=== PATIENT | female | born 1975 | race Caucasian/White ===

== ENCOUNTER 2021-12-21 09:36 | Outpatient (CLI) | payer BC, SELFPAY ==
--- NOTE | 2021-12-21 09:59 | EST_ITS ---
Patient Info Name: Jessica Dean Age: 46 years : 1975 Gender: Female Ht: 64 in Wt: 240 lbs BSA: 2.27 m2 Exam Date: 12/21/2021 10:35 AM Exam Location: [facility] Patient Status: Outpatient Admit Date: 12/21/2021 Staff Ordering Physician: Diogenes Hand DO Attending Provider: Diogenes Hand DO Exercise Technologist: Starla Villalobos RDCS Exercise Physician: Diogenes Hand DO Exam Type: CA stress test treadmill Study Info Indications R07.9 - Chest pain, unspecified An exercise stress test was performed. Summary 1. 1. Negative [facility]ris exercise stress test for ischemic ST changes by ECG criteria. 2. 2. Reduced functional capacity, achieving 7 METs of workload. 3. 3. Baseline hypertension. 4. 4. Appropriate HR response to exercise. 5. 5. Appropriate HR recovery at 1 minute post exercise. 6. 6. Baseline ventricular ectopics. 7. 7. No imaging with stress testing. 8. 8. Patient informed of the above results. Protocol: [facility] ECG Details Stage: REST Duration (min): 0 min : 57 sec Speed (mph): 0.0 Grade (%): 0 HR (bpm): 91 SBP (mmHg): 149 DBP (mmHg): 90 METS: --- Stage: REST Duration (min): 7 min : 7 sec Speed (mph): 0.0 Grade (%): 0 HR (bpm): 90 SBP (mmHg): 149 DBP (mmHg): 90 METS: --- Stage: STAGE 1 Duration (min): 1 min : 0 sec Speed (mph): 1.7 Grade (%): 10 HR (bpm): 121 SBP (mmHg): 149 DBP (mmHg): 90 METS: --- Stage: STAGE 1 Duration (min): 2 min : 0 sec Speed (mph): 1.7 Grade (%): 10 HR (bpm): 135 SBP (mmHg): 149 DBP (mmHg): 90 METS: --- Stage: STAGE 1 Duration (min): 3 min : 0 sec Speed (mph): 1.7 Grade (%): 10 HR (bpm): 146 SBP (mmHg): 194 DBP (mmHg): 79 METS: --- Stage: STAGE 2 Duration (min): 1 min : 0 sec Speed (mph): 2.5 Grade (%): 12 HR (bpm): 151 SBP (mmHg): 194 DBP (mmHg): 79 METS: --- Stage: STAGE 2 Duration (min): 1 min : 23 sec Speed (mph): 2.5 Grade (%): 12 HR (bpm): 151 SBP (mmHg): 194 DBP (mmHg): 79 METS: --- Stage: RECOVERY Duration (min): 0 min : 36 sec Speed (mph): 0.0 Grade (%): 0 HR (bpm): 141 SBP (mmHg): 206 DBP (mmHg): 78 METS: --- Stage: RECOVERY Duration (min): 1 min : 36 sec Speed (mph): 0.0 Grade (%): 0 HR (bpm): 114 SBP (mmHg): 206 DBP (mmHg): 78 METS: --- Stage: RECOVERY Duration (min): 2 min : 36 sec Speed (mph): 0.0 Grade (%): 0 HR (bpm): 106 SBP (mmHg): 206 DBP (mmHg): 78 METS: --- Stage: RECOVERY Duration (min): 3 min : 36 sec Speed (mph): 0.0 Grade (%): 0 HR (bpm): 105 SBP (mmHg): 187 DBP (mmHg): 74 METS: --- Stage: RECOVERY Duration (min): 4 min : 36 sec Speed (mph): 0.0 Grade (%): 0 HR (bpm): 101 SBP (mmHg): 187 DBP (mmHg): 74 METS: --- Stage:
== END 2021-12-21 09:37 | disposition home or self-care (01) ==
PROVIDERS: PCP Family Medicine; Visit Provider Internal Medicine Cardiovascular Disease
DX: R07.9 Chest pain, unspecified (principal)
CPT/HCPCS: 93017

== ENCOUNTER 2022-11-20 08:34 | Outpatient (CLI) | payer BC, SELFPAY ==
[2022-11-20 08:59] LABS: Basophils Percent Auto 0.5 % (0.2-1.2); Eosinophils Absolute Auto 0.1 K/mm3 (0-0.3); Hematocrit 41.7 % (37.0-47.0); Hemoglobin 14.3 g/dL (12.0-15.0); Immature Granulocyte Absolute 0.12 K/mm3 (0.00-0.031); Immature Granulocyte Percent A 1.5 % (0-0.5); Lymphocytes Absolute Auto 1.44 K/mm3 (0.9-3.2); Lymphocytes Percent Auto 17.7 % (18.3-44.2); Mean Corpuscular HGB Conc 34.3 g/dl (32-36); Mean Corpuscular Hemoglobin 31.8 pg (26-34); Mean Corpuscular Volume 92.9 fl (80-100); Mean Platelet Volume 9.6 fl (7.4-10.4); Monocytes Absolute Auto 0.9 K/mm3 (0.1-0.6); Monocytes Percent Auto 11.4 % (2.6-8.5); Neutrophils Absolute Auto 5.5 K/mm3 (1.3-6.7); Neutrophils Percent Auto 67.9 % (45.5-73.1); Platelet Count Result 325 k/mm3 (150-375); Red Blood Count 4.49 M/mm3 (4.2-5.4); Red Cell Distribution Width 13.1 % (11.5-14.5); White Blood Count 8.1 K/mm3 (4.5-10.0)
[2022-11-20 10:36] LABS: Alanine Aminotransferase 36 U/L (6-35); Albumin Level 4.1 g/dL (3.5-5.1); Alkaline Phosphatase 84 U/L (38-126); Anion Gap 4 mmol/L (8-16); Aspartate Amino Transferase 31 U/L (14-36); Bilirubin,Total 0.6 mg/dL (0.2-1.3); Blood Urea Nitrogen 12 mg/dL (7-17); Calcium 8.3 mg/dL (8.4-10.2); Carbon Dioxide 33 mmol/L (22-30); Chloride 100 mmol/L (98-107); Cholesterol 233 mg/dL (0-200); Estimated Glomerular Filt Rate > 60; Glucose 99 mg/dL (65-110); HDL Direct 70 mg/dL; Potassium 3.1 mmol/L (3.4-5.0); Sodium 137 mmol/L (137-145); Triglycerides 132 mg/dL (<150)
[2022-11-20 10:48] LABS: LDL Cholesterol Direct 118 mg/dL
[2022-11-20 10:59] LABS: Hemoglobin A1C 5.2 % (<5.7)
[2022-11-20 11:42] LABS: Folic Acid 11.9 ng/mL (2.76->20); Vitamin B12 > 1000.0 pg/mL (239-931)
[2022-11-24 05:20] LABS: FSH 8.8 mIU/mL (***); LH 1.4 mIU/mL (***)
[2022-11-25 15:17] LABS: Vitamin D 1,25 (OH)2 Total 49 pg/mL (18-72); Vitamin D2 1,25 (OH)2 <8 pg/mL; Vitamin D3 1,25 (OH)2 49 pg/mL
== END 2022-11-20 08:35 | disposition home or self-care (01) ==
LOC: ANHLAB 08:36
PROVIDERS: PCP Family Medicine; Visit Provider Physician Assistant
DX: E53.8 Deficiency of other specified B group vitamins (principal); F32.9 Major depressive disorder, single episode, unspecified; E66.01 Morbid (severe) obesity due to excess calories; E78.5 Hyperlipidemia, unspecified; Z83.3 Family history of diabetes mellitus; Z79.899 Other long term (current) drug therapy
CPT/HCPCS: 36415; 80053; 80061; 82607; 82652; 82746; 83001; 83002; 83036; 84443; 85025

== ENCOUNTER 2022-12-11 11:56 | Outpatient (CLI) | payer BC, SELFPAY ==
[2022-12-11 12:25] LABS: Anion Gap 4 mmol/L (8-16); Blood Urea Nitrogen 8 mg/dL (7-17); Carbon Dioxide 32 mmol/L (22-30); Chloride 100 mmol/L (98-107); Potassium 3.4 mmol/L (3.4-5.0); Sodium 136 mmol/L (137-145)
[2022-12-11 12:26] LABS: Calcium 8.2 mg/dL (8.4-10.2); Estimated Glomerular Filt Rate > 60; Glucose 122 mg/dL (65-110)
== END 2022-12-11 11:57 | disposition home or self-care (01) ==
PROVIDERS: PCP Family Medicine; Visit Provider Physician Assistant
DX: E87.6 Hypokalemia (principal)
CPT/HCPCS: 36415; 80048

== ENCOUNTER 2022-12-13 14:56 | Outpatient (CLI) | payer BC, SELFPAY ==
--- NOTE | 2022-12-13 15:33 | ECG_ITS ---
Measurements Intervals Coleman Rate: 93 P: 28 LA: 148 QRS: 12 QRSD: 107 T: 29 QT: 349 QTc: 436 Interpretive Statements SINUS RHYTHM VOLTAGE CRITERIA FOR LVH NONSPECIFIC ST & T-WAVE ABNORMALITY- ANT/INF LEADS BORDERLINE ECG NO PREVIOUS ECG AVAILABLE FOR COMPARISON Electronically Signed On 12-13-2022 16:17:13 CDT by Diogenes Hand D.O.
== END 2022-12-13 14:57 | disposition home or self-care (01) ==
PROVIDERS: PCP Family Medicine; Visit Provider Orthopaedic Surgery
DX: E78.5 Hyperlipidemia, unspecified (principal); I10 Essential (primary) hypertension; M75.101 Unspecified rotator cuff tear or rupture of right shoulder, not specified as traumatic; Z01.818 Encounter for other preprocedural examination; R94.31 Abnormal electrocardiogram [ECG] [EKG]
CPT/HCPCS: 87081; 93005

== ENCOUNTER 2022-12-17 00:58 | Day surgery (SDC) | payer BC, SELFPAY ==
[2022-12-13 09:49] VITALS: BMI 42.9
--- NOTE | 2022-12-13 09:55 | PC.NURSE ---
Report to the Outpatient Waiting Room, entrance under the green pavilion located off [facility], at time 10:00 on date 12/17/22. Planned Procedure Time: 12:00. Time changes happen often and if your time is changed the preop area will call you the afternoon before. - You and your visitor will be asked to self-screen and do not enter if you have any COVID symptoms. - A mask is optional within the hospital at this time. Patients may have clear liquids (water, carbonated beverages, clear teas, apple juice) until 3 hours prior to surgery (9:00) with a maximum of 20 ounces. - No food from midnight until time of surgery Take the following medications with a SIP of water the morning of surgery: AMLODIPINE, BUPROPION, FLUOXETINE DO NOT STOP ANY OF YOUR OTHER PRESCRIPTION MEDICATIONS PRIOR TO SURGERY ?EXCEPT THE FOLLOWING Medications to discontinue per physician: N/A Date to take last dose: N/A Please no make-up, nail macedonian, hairspray, perfume, deodorant, or body powder the day of surgery. No jewelry (including any body piercings) or valuables the day of surgery, leave them at home. Please take a shower or bath the night before, or the morning of, surgery with an antibacterial soap. Wear comfortable, loose fitting clothing. - Jewelry must be removed prior to entering the operating room. Rings and piercings that are not removed may be cut off. - The hospital will not accept responsibility for valuables. - Please leave all valuables, including medications, at home the day of surgery. If you are going home after surgery, a licensed inventory associate and driver must drive you home. - NO public transportation without another adult if you receive anesthesia. - We recommend that an adult stay with you for 24 hours following discharge. - We also recommend that you do not drive, make important decision, drink alcoholic beverages, or take any drugs that were not prescribed by your health care provider for at least 24 hours after your discharge time. Follow any additional instructions given to you from your surgeon. If you or anyone in your household have experienced Covid symptoms in the past week, please notify your surgeon or the nurse liaison at the phone number below for possible testing. Telephone instructions given to PT - BAKARI SANTA and asked if any additional questions and then verbalized understanding. Patient advised to call surgeon office or pre surgery nurse liaison [phone] if any additional questions.
--- NOTE | 2022-12-13 12:21 | PM.IMHP ---
H&P: HPI History of Present Illness Date/Time: 12/13/22 12:21 Chief Complaint: Rotator cuff tear right shoulder Narrative: 47-year-old female patient of Dr. Feliz who presents today for arthroscopy of her right shoulder with mini open rotator cuff repair. Patient has been having symptoms in the right shoulder for about a year. She has had 2 cortisone injections earlier this year. On 11/02 of this year she was moving her 10 lb hurts. When she went to pick it up she felt several pops in the right shoulder any tearing sensation. She had extreme pain in the anterior aspect of the shoulder. She was seen on 11/03. After initial evaluation she was sent for an MRI scan of the shoulder which showed a full-thickness tear the supraspinatus tendon with retraction. There is no atrophy or fatty infiltration noted. Findings on the MRI scan would suggest this is an acute tear. Patient is only 47 and options were discussed. Patient would like to proceed with surgery for repair of the rotator cuff tendon. Review of Systems Review of Systems: All systems reviewed & are unremarkable except as noted in HPI and below PMFSH Past Medical History Medical History delivery delivered Depression Headache, migraine Hyperlipidemia Hypertension Palpitations Family History Family History Father Cerebrovascular accident Hypertension Family history of Parkinson's disease Mother Hypertension Family history of diabetes mellitus in first degree relative Sibling Hypertension Social History Social History Years smoked: 25 Smoking status: Former smoker Tobacco type: cigarettes Smoking end date: 04/04/17 Alcohol intake: never Substance use: never Substance use type: does not use Living arrangements: with family Spiritual care concerns: No Meds Home Medications and Allergies Home Medications Medication Instructions Recorded Confirmed Type amlodipine 10 mg tablet See Rx Instructions .Route 07/19/22 12/13/22 Rx .COMPLEX #90 tabs pravastatin 20 mg tablet See Rx Instructions .Route 07/19/22 12/13/22 Rx .COMPLEX #90 tabs bupropion HCl 300 mg 24 hr tablet, See Rx Instructions .Route 09/27/22 12/13/22 Rx extended release .COMPLEX #90 tabs losartan 100 mg tablet 100 mg PO DAILY #90 tabs 11/23/22 12/13/22 Rx fluoxetine 20 mg capsule 20 mg PO DAILY #90 caps 11/30/22 12/13/22 Rx Allergies Allergy/AdvReac Type Severity Reaction Status Date / Time latex Allergy Intermediate ITCHING Verified 12/13/22 09:48 lisinopril Allergy Unknown cough Verified 12/13/22 09:48 morphine Allergy Unknown Skin Verified 12/13/22 09:48 Reaction naltrexone Allergy Unknown Depression Verified 12/13/22 09:48 Exam Narrative: 47-year-old female she is 5 ft 3 and 258 lb her BMI is 45.7. Her neck is full range motion without discomfort. She has normal light touch sensation right upper extremity. She has severe pain with movement of the arm. She has assisted elevation 160, external rotation is 75 and internal rotation is to L5. She has moderately severe weakness with external rotation as well as abduction strength testing. Negative abdominal compression test. 2+ radial pulse in her wrist. Moderate to severe tenderness over the anterior supraspinatus tendon insertion. Resp: Auscultation: clear to auscultation bilaterally Cardio: Rate: regular rate Rhythm: regular rhythm Assessment and Plan Assessment and plan (1) Rotator cuff tear, right: Qualifiers: Rotator cuff tear extent: unspecified tear extent Rotator cuff tear trauma status: unspecified whether traumatic Qualified Code(s): M75.101 - Unspecified rotator cuff tear or rupture of right shoulder, not specified as traumatic Code(s): M75.101 - Unspecified rotator cuff tear
[2022-12-17] VITALS (11 sets, daily range): BP systolic 138–175; BP diastolic 72–98; PULSE 96–112; RESP 14–19; TEMP 36.8–37.2; O2SAT 93–99
[2022-12-17] MEDS: ACETAMINOPHEN 500 MG TABLET 1000 MG PO (10:45)
[2022-12-17] MEDS: LACTATED RINGERS 1,000 ML 30 ML IV CONT ×2 (10:51→16:27)
[2022-12-17] MEDS: KETOROLAC 15 MG/ML VIAL (*BKC) IV PUSH (10:52)
--- NOTE | 2022-12-17 11:06 | SUR.PREOP ---
PT AND INFORMED OF SURGERY TIME DELAY.
--- NOTE | 2022-12-17 12:02 | WPDANESEPPF ---
Anes - Initial Pre Proc Eval Procedure: Operation Date: 12/17/22 12:00 Proposed Procedures p Right Shoulder Arthroscopy, Mini Open Rotator Cuff Repair, Proceed as Indicated - Hussein Domingo MD Date/Time: 12/17/22 12:02 Surgeon: Hussein Domingo MD Pre Op Diagnosis: rotator cuff tear right shoulder Patient Data Age: 47 Gender: F Height: 1.63 m Weight: 115 kg Last Vital Signs Temp 37.2 C 12/17/22 10:23 Pulse 99 12/17/22 10:23 Resp 16 12/17/22 10:23 BP 160/95 H 12/17/22 10:23 Pulse Ox 98 12/17/22 10:23 O2 Del Method Room Air 12/17/22 10:23 Allergies Allergy/AdvReac Type Severity Reaction Status Date / Time latex Allergy Intermediate ITCHING Verified 12/17/22 10:27 lisinopril Allergy Unknown cough Verified 12/17/22 10:27 morphine Allergy Unknown Skin Verified 12/17/22 10:27 Reaction naltrexone Allergy Unknown Depression Verified 12/17/22 10:27 Home Medications Medication Instructions Recorded Confirmed Type amlodipine 10 mg tablet See Rx Instructions .Route 07/19/22 12/17/22 Rx .COMPLEX #90 tabs pravastatin 20 mg tablet See Rx Instructions .Route 07/19/22 12/17/22 Rx .COMPLEX #90 tabs bupropion HCl 300 mg 24 hr tablet, See Rx Instructions .Route 09/27/22 12/17/22 Rx extended release .COMPLEX #90 tabs losartan 100 mg tablet 100 mg PO DAILY #90 tabs 11/23/22 12/17/22 Rx fluoxetine 20 mg capsule 20 mg PO DAILY #90 caps 11/30/22 12/17/22 Rx Patient hx anesthesia problems: none Family hx anesthesia problems: none Results Review: All pre-operative results and documents have been reviewed as part of the pre-operative evaluation. FOR[facility], [facility] Past Medical History Medical History delivery delivered Depression Headache, migraine Hyperlipidemia Hypertension Palpitations Family History Family History Father Cerebrovascular accident Hypertension Family history of Parkinson's disease Mother Hypertension Family history of diabetes mellitus in first degree relative Sibling Hypertension Social History Social History Years smoked: 25 Smoking status: Former smoker Tobacco type: cigarettes Smoking end date: 04/04/17 Alcohol intake: never Substance use: never Substance use type: does not use Living arrangements: with family Spiritual care concerns: No Anes - Eval Final PreProcedure Day of Procedure 12/17/22 12:02 Patient weight: morbidly obese Lungs: clear to auscultation Airway: Mallampati scale class II Neurological: alert and oriented Last oral intake: >/= 8 hours ASA classification: III Emergent: no Anesthetic plan: proceed Anesthesia type and monitoring: general ETT and standard monitoring Results Review: All pre-operative results and documents have been reviewed as part of the pre-operative evaluation. Informed Consent: The patient's anesthetic plan and its attendant risks and benefits were discussed with the patient/family/POA. Questions were solicited and answers provided to the satisfaction of the patient/family/POA.
--- NOTE | 2022-12-17 12:17 | WPDHPUPDATE1 ---
History and Physical Update Update Date/Time: 12/17/22 12:17 History and Physical has been reviewed, including an updated exam of the patient. There are NO changes in the patient's condition. Risks, benefits, and alternatives have been discussed and questions answered. Patient agrees to proceed with procedure.
--- NOTE | 2022-12-17 12:34 | WPDANESPNB ---
Anes - Peripheral Nerve Block Date/Time: 12/17/22 12:34 I have discussed with the patient/family/POA the placement of a peripheral nerve block for post-operative pain management, including associated risks, benefits, complications, and side effects. Alternative methods of post-operative analgesia were detailed. Questions were solicited and answers provided to the satisfaction of the patient/family/POA. Time-Out: A pre-procedural Time-Out was completed immediately before starting the procedure and confirmed: Patient Identification, Site, Procedure, Patient Position and the Availability of Requisite Equipment. Clinical Indications: Acute post-operative pain management requested by the operative surgeon. Nerve Block Insertion Note Anes-nerve block: interscalene right Patient position: other (sitting) Skin prep: chlorhexidine Needle: 22 gauge, stimulating, insulated echogenic needle. Needle length: 50 mm Technique: nerve stimulation lost at (mA) and ultrasound Technique comment: mid2mg [id number] Injectate: bupivacaine 0.5% with epi 5 mcg/ml (30ml no epi) and dexamethasone (mg) Observations: tolerated well Complications: none Procedure start time:: 1223 Procedure end time:: 1230
[2022-12-17] MEDS: ceFAZolin 2 GM/D5W 50 ML 2 GM/50 ML BAG IVPB (12:38)
[2022-12-17] MEDS: VANCOMYCIN HCL 1,000 MG VIAL 1000 MG TOPICAL (13:46)
[2022-12-17] MEDS: ceFAZolin SODIUM 1 GM VIAL (13:46)
[2022-12-17] MEDS: BUPIVACAINE/EPINEPHRINE 0.5% 50 ML VIAL INFILTRATE (13:49)
[2022-12-17] MEDS: ceFAZolin SODIUM 1 GM VIAL IV PUSH (15:52)
--- NOTE | 2022-12-17 16:34 | PM.OP ---
Procedure Note - Brief Procedure Note - Brief Date of procedure: 12/17/22 rotator cuff tear right shoulder Procedure performed: Arthroscopy right shoulder with mini open rotator cuff repair Surgeon: LELE Campa Description of procedure: 47-year-old female who underwent arthroscopy of her right shoulder with mini open rotator cuff repair. I was involved in the procedure including positioning patient on the OR table and 1st assisting to the time surgery. Total time spent was 4 hours
[2022-12-17] MEDS: ONDANSETRON INJ 4 MG/2 ML VIAL IV PUSH (17:22)
[2022-12-17] MEDS: diphenhydrAMINE HCl INJ 50 MG/ML VIAL 25 MG IV PUSH (17:52)
--- NOTE | 2022-12-18 19:39 | W.PM.PROC2 ---
Procedure Note - Detailed Date of Procedure 12/18/22 Pre-op Diagnosis rotator cuff tear right shoulder Post-op Diagnosis Same Procedure Performed Limited arthroscopic debridement right shoulder, mini open rotator cuff repair with acellular dermal allograft augmentation Surgeon Hussein Domingo MD [facility] General and Regional Description of Procedure Patient received an interscalene block right shoulder in the preop holding area. patient was brought to the operating room and general anesthesia was administered. She received weight based vancomycin 2 g of Ancef. She was placed in the beach chair position the head secured in neutral position left arm supported in well padded. The right shoulder was prepped and draped usual fashion. There is extra difficulty with the procedure due to the patient's extreme obesity with BMI of 43.5 and severe tendon retraction. This added at least an hour of time to the procedure. All the skin was covered with I band except the top portion. A posterior portal was placed. The long of the biceps, subscapularis, glenoid labrum, and articular surfaces all look normal. There is a massive tear of the rotator cuff involving all of the infraspinatus and supraspinatus tendons with severe retraction medially. The tear involves the rotator cuff interval capsule as well. the coracoid acromial ligament was frayed and CA ligament release was performed arthroscopically with doubtful portal placed and minimal smoothing of the anterior acromion was performed. The arthroscopic instruments were removed the remaining skin cover with I band in outer gloves changed. A 5 cm longitudinal incision was made over the anterior superior aspect of the shoulder and a 4 cm split made in the superior deltoid at the tendinous ref a between anterior and middle heads. For adequate exposure we released about 8 mm of the anterior deltoid from the acromion. The supraspinatus and infraspinatus were retracted to the level of the glenoid rim. There was a longitudinal split between the retracted infraspinatus and the teres minor. There was minimal residual tissue on the greater tuberosity footprint of the teres minor. There is a flap of tendon which was weakly attached to the anterior edge of the supraspinatus footprint left from his substance tearing of the anterior cable of the supraspinatus tendon. Dissection was about 15 mm long. This was attached to rotator cuff interval capsule over the distal most course of the long head of the biceps tendon just prior to the bicipital groove than there is a the fact of the rotator cuff interval capsule medial to that. We left this band tissue attached to the anterior 3 or 4 mm of the supraspinatus footprint 2 8 in repair. The rest of the supraspinatus footprint as well as the infraspinatus footprint was carefully abraded using clean 15 blade scalpel remove any residual soft tissue and fibrous membrane and then a 2 mm bur to make 1 mm dimples throughout. I removed about 2 mm of the lateral edge of the articular cartilage medialized the tuberosity a little bit to improve the area of attachment and 2 mm bur holes were made in this line for passage of sutures medially adjacent to the articular cartilage. We used a head lamp for visualization and I was able to place a Quinten the anterior lateral edge of the tendon and this allowed us to place a 1.4 mm SutureTape in that cornerWhich allowed some gentle traction on the tendon and using the small tear elevator followed by medium tear elevator we were able to bluntly free adhesions between the tendon the acromion allowing immobilization of the infraspinatus and supraspinatus tendons. This gave us a little bit more expose tendon to allow was to put a better more medially placed tape as a traction suture which allowed us to retract the tendon with a little bit more force and when I felt that the his infraspinatus the supraspinatus tendons were mobilized as much a
== END 2022-12-17 19:13 | disposition home or self-care (01) ==
PROVIDERS: PCP Family Medicine; Visit Provider Orthopaedic Surgery
PROC: (CPT 29805; principal; 2022-12-17 12:00)
DX: S46.011A Strain of muscle(s) and tendon(s) of the rotator cuff of right shoulder, initial encounter (principal); X50.0XXA Overexertion from strenuous movement or load, initial encounter; G89.18 Other acute postprocedural pain; I10 Essential (primary) hypertension; E78.5 Hyperlipidemia, unspecified; F32.A Depression, unspecified; Z87.891 Personal history of nicotine dependence; E66.01 Morbid (severe) obesity due to excess calories; Z68.41 Body mass index [BMI] 40.0-44.9, adult
CPT/HCPCS: 23410; 64415; A9270; J0690; J1100; J1200; J1885; J2250; J2405; J3010; J3370; J7030; J7120; Q4125

== ENCOUNTER 2023-06-24 00:43 | Day surgery (SDC) | payer BC, SELFPAY ==
[2023-06-20 15:11] VITALS: BMI 43.4
--- NOTE | 2023-06-20 15:18 | PC.NURSE ---
Report to the Outpatient Waiting Room, entrance under the green pavilion located off [facility], at time 1000 on date 06/24/23. Planned Procedure Time: 1200. Time changes happen often and if your time is changed the preop area will call you the afternoon before. - You and your visitor will be asked to self-screen and do not enter if you have any COVID symptoms. - A mask is optional within the hospital at this time. Patients may have clear liquids (water, carbonated beverages, clear teas, apple juice) until 3 hours prior to surgery with a maximum of 20 ounces. - No food from midnight until time of surgery Take the following medications with a SIP of water the morning of surgery: AMLODIPINE, BUPROPION, FLUOXETINE DO NOT STOP ANY OF YOUR OTHER PRESCRIPTION MEDICATIONS PRIOR TO SURGERY ?EXCEPT THE FOLLOWING Medications to discontinue per physician: VITAMINS/SUPPLEMENTS Date to take last dose: 06/20/23 Please no make-up, nail citizen of [place], hairspray, perfume, deodorant, or body powder the day of surgery. No jewelry (including any body piercings) or valuables the day of surgery, leave them at home. Please take a shower or bath the night before, or the morning of, surgery with an antibacterial soap. Wear comfortable, loose fitting clothing. - Jewelry must be removed prior to entering the operating room. Rings and piercings that are not removed may be cut off. - The hospital will not accept responsibility for valuables. - Please leave all valuables, including medications, at home the day of surgery. If you are going home after surgery, a licensed regional driver must drive you home. - NO public transportation without another adult if you receive anesthesia. - We recommend that an adult stay with you for 24 hours following discharge. - We also recommend that you do not drive, make important decision, drink alcoholic beverages, or take any drugs that were not prescribed by your health care provider for at least 24 hours after your discharge time. Follow any additional instructions given to you from your surgeon. If you or anyone in your household have experienced Covid symptoms in the past week, please notify your surgeon or the nurse liaison at the phone number below for possible testing. Telephone instructions given to PT - BAKARI and asked if any additional questions and then verbalized understanding. Patient advised to call surgeon office or pre surgery nurse liaison [phone] if any additional questions.
[2023-06-24] VITALS (8 sets, daily range): BP systolic 130–160; BP diastolic 75–94; PULSE 81–94; RESP 14–20; TEMP 36.3–37.2; O2SAT 97–100
--- NOTE | 2023-06-24 09:06 | WPDHPUPDATE1 ---
History and Physical Update Update Date/Time: 06/24/23 09:06 History and Physical has been reviewed, including an updated exam of the patient. There are NO changes in the patient's condition. Risks, benefits, and alternatives have been discussed and questions answered. Patient agrees to proceed with procedure.
--- NOTE | 2023-06-24 09:06 | PM.IMHP ---
H&P: HPI History of Present Illness Date/Time: 06/24/23 09:06 Chief Complaint: I'm having irregular bleeding Narrative: Patient here with periods that have gotten heavier, longer. Initially had nursing program chair, shorter periods since the ablation but in the last few months they've become heavier and problematic. She will undergo hysteroscopy, D&C and possible myosure or resection of any abnormal lesions. Review of Systems Review of Systems: All systems reviewed & are unremarkable except as noted in HPI and below PMFSH Past Medical History Medical History delivery delivered Depression Headache, migraine Hyperlipidemia Hypertension Palpitations Family History Family History Father Cerebrovascular accident Hypertension Family history of Parkinson's disease Mother Hypertension Family history of diabetes mellitus in first degree relative Sibling Hypertension Social History Social History (Updated 03/14/23 @ 08:37 by Alyse Mariee MA) Years smoked: 23 Smoking status: Former smoker Tobacco type: cigarettes Smoking end date: 07/04/19 Alcohol intake: current Alcohol use details: occasionally Substance use: never Substance use type: does not use Living arrangements: with family Spiritual care concerns: No Meds Home Medications and Allergies Home Medications Medication Instructions Recorded Confirmed Type semaglutide 0.25 mg or 0.5 mg (2 0.25 mg subcut WEEKLY 03/14/23 06/20/23 History mg/3 mL) subcutaneous pen injector bupropion HCl 300 mg 24 hr tablet, See Rx Instructions .Route 04/27/23 06/20/23 Rx extended release .COMPLEX #90 tabs amlodipine 10 mg tablet See Rx Instructions .Route 05/11/23 06/20/23 Rx .COMPLEX #90 tabs losartan 100 mg tablet 100 mg PO DAILY #90 tabs 05/11/23 06/20/23 Rx pravastatin 20 mg tablet See Rx Instructions .Route 05/11/23 06/20/23 Rx .COMPLEX #90 tabs fluoxetine 20 mg capsule 20 mg PO DAILY #90 caps 06/13/23 06/20/23 Rx cholecalciferol (vitamin D3) 50 50 mcg PO DAILY 06/20/23 06/20/23 History mcg (2,000 unit) capsule (Vitamin D3) docusate sodium 100 mg capsule 100 mg PO DAILY 06/20/23 06/20/23 History (Colace) Allergies Allergy/AdvReac Type Severity Reaction Status Date / Time latex Allergy Intermediate ITCHING Verified 06/20/23 15:09 lisinopril Allergy Unknown cough Verified 06/20/23 15:09 morphine Allergy Unknown Skin Verified 06/20/23 15:09 Reaction naltrexone Allergy Unknown Depression Verified 06/20/23 15:09 Exam Const: General: comfortable and no acute distress Eyes: General: appearance normal, both eyes and all related structures Resp: Effort & Inspection: normal respiratory effort Auscultation: clear to auscultation bilaterally Cardio: Rate: regular rate Rhythm: regular rhythm GI: GI Palp: Yes Soft to palpation Auscultation: normal bowel sounds Skin: General skin exam: normal color and no rashes or lesions noted Assessment and Plan Assessment and plan (1) Abnormal uterine bleeding: Code(s): N93.9 - Abnormal uterine and vaginal bleeding, unspecified Status: Acute (2) PCB (post coital bleeding): Code(s): N93.0 - Postcoital and contact bleeding Status: Acute Plan Hysteroscopy, D&C, possible resectoscope (myosure versus Aveta)
--- NOTE | 2023-06-24 09:10 | WPDHPUPDATE1 ---
History and Physical Update Update Date/Time: 06/24/23 09:10 History and Physical has been reviewed, including an updated exam of the patient. There are NO changes in the patient's condition. Risks, benefits, and alternatives have been discussed and questions answered. Patient agrees to proceed with procedure.
[2023-06-24] MEDS: LACTATED RINGERS 1,000 ML 30 ML IV CONT (09:15)
[2023-06-24] MEDS: ACETAMINOPHEN 500 MG TABLET 1000 MG PO (09:15)
--- NOTE | 2023-06-24 09:43 | WPDANESEPPF ---
Anes - Initial Pre Proc Eval Procedure: Operation Date: 06/24/23 10:30 Proposed Procedures p Hysteroscopy Dilation and Curettage, Possible Myosure - Antonella Donahue DO s Removal of Left Leg Lesion - Antonella Donahue DO Date/Time: 06/24/23 09:43 Surgeon: Antonella Donahue DO Pre Op Diagnosis: Abnormal uterine bleed,post toital bleeding (cont) Patient Data Age: 47 Gender: F Height: 1.6 m Weight: 109.7 kg Last Vital Signs Temp 99 F 06/24/23 09:15 Pulse 88 06/24/23 09:15 Resp 14 06/24/23 09:15 BP 142/89 H 06/24/23 09:15 Pulse Ox 99 06/24/23 09:15 O2 Del Method Room Air 06/24/23 09:15 Allergies Allergy/AdvReac Type Severity Reaction Status Date / Time latex Allergy Intermediate ITCHING Verified 06/24/23 09:38 lisinopril Allergy Unknown cough Verified 06/24/23 09:38 morphine Allergy Unknown Skin Verified 06/24/23 09:38 Reaction naltrexone Allergy Unknown Depression Verified 06/24/23 09:38 Home Medications Medication Instructions Recorded Confirmed Type semaglutide 0.25 mg or 0.5 mg (2 0.25 mg subcut WEEKLY 03/14/23 06/20/23 History mg/3 mL) subcutaneous pen injector bupropion HCl 300 mg 24 hr tablet, See Rx Instructions .Route 04/27/23 06/20/23 Rx extended release .COMPLEX #90 tabs amlodipine 10 mg tablet See Rx Instructions .Route 05/11/23 06/20/23 Rx .COMPLEX #90 tabs losartan 100 mg tablet 100 mg PO DAILY #90 tabs 05/11/23 06/20/23 Rx pravastatin 20 mg tablet See Rx Instructions .Route 05/11/23 06/20/23 Rx .COMPLEX #90 tabs fluoxetine 20 mg capsule 20 mg PO DAILY #90 caps 06/13/23 06/20/23 Rx cholecalciferol (vitamin D3) 50 50 mcg PO DAILY 06/20/23 06/24/23 History mcg (2,000 unit) capsule (Vitamin D3) docusate sodium 100 mg capsule 100 mg PO DAILY 06/20/23 06/20/23 History (Colace) Patient hx anesthesia problems: none Family hx anesthesia problems: none Results Review: All pre-operative results and documents have been reviewed as part of the pre-operative evaluation. [facility] Past Medical History Medical History delivery delivered Depression Headache, migraine Hyperlipidemia Hypertension Palpitations Family History Family History Father Cerebrovascular accident Hypertension Family history of Parkinson's disease Mother Hypertension Family history of diabetes mellitus in first degree relative Sibling Hypertension Social History Social History (Updated 03/14/23 @ 08:37 by Alyse Mariee MA) Years smoked: 23 Smoking status: Former smoker Tobacco type: cigarettes Smoking end date: 07/04/19 Alcohol intake: current Alcohol use details: occasionally Substance use: never Substance use type: does not use Living arrangements: with family Spiritual care concerns: No Anes - Eval Final PreProcedure Day of Procedure 06/24/23 09:43 Patient weight: morbidly obese Heart: regular rate and rhythm Lungs: clear to auscultation Airway: Mallampati scale class III Neurological: alert and oriented Last oral intake: >/= 8 hours ASA classification: III Emergent: no Anesthetic plan: proceed Anesthesia type and monitoring: general GIVS and LMA and standard monitoring Results Review: All pre-operative results and documents have been reviewed as part of the pre-operative evaluation. Informed Consent: The patient's anesthetic plan and its attendant risks and benefits were discussed with the patient/family/POA. Questions were solicited and answers provided to the satisfaction of the patient/family/POA.
[2023-06-24] MEDS: BUPivacaine HCL 0.25% PF 30 ML VIAL INFILTRATE (10:49)
--- NOTE | 2023-06-24 11:14 | W.PM.PROC2 ---
Procedure Note - Detailed Date of Procedure 06/24/23 Pre-op Diagnosis Abnormal uterine bleed, postcoital bleeding Post-op Diagnosis Same Procedure Performed Hysteroscopy, D&C, polypectomy using Aveta system. Removal of left thigh lesion. Surgeon Antonella Donahue, Anesthesia General Indications Abnormal uterine bleeding, post-coital bleeding. Left thigh lesion. Findings Normal vulva and vaginal canal. Medium cervix. uterus sounded to 6cm. There was scar tissue inside the uterus consistent with previous ablation. On the left lateral wall there were two small polyploid appearing lesions. Description of Procedure The patient was taken to the operating room where she was placed under general with LMA. She was prepped and draped in the normal, sterile fashion in dorsal lithotomy. No preoperative antibiotics were needed. A timeout was performed. A speculum was placed in the vagina and the cervix was grasped with a tenaculum. The cervix was dilated using a hemostat and small cervical dilators. The uterus sounded to only 6 mm before I felt firm resistance. I inserted the scope to see if I could better identify the cervical canal's entry into the uterus. The scope was inserted and we did enter the uterine cavity successfully. 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 On the left sidewall there were two small lesions that were distinctly round and unique from the scar tissue, possibly polyps. The resectoscope was inserted through the Aveta and the polyps and a thorough sampling of the lining was performed under direct visualization. The scope was then removed. The tenaculum was removed and the puncture sites were hemostatic. The speculum was removed. Gloves were changed. The left thigh lesion had been marked and previouisly prepped. The area was injected with local and the skin tag was grasped and elevated. It was snipped off the underlying skin using scissors.The defect was reapproximated with 4-0 monocryl in subcuticular fashion and covered with steri strips, benzoin and a bandage. The patient was taken to recovery in stable condition. All instruments and sponges were correct at the conclusion of the procedure. Estimated Blood Loss 5 IV Fluids 500 Drains No Packing No Pathology Yes Complications No immediate complications Condition Stable
== END 2023-06-24 12:48 | disposition home or self-care (01) ==
PROVIDERS: PCP Family Medicine; Visit Provider Obstetrics & Gynecology Gynecologic Oncology
PROC: 0U5B8ZZ Destruction of Endometrium, Via Natural or Artificial Opening Endoscopic (ICD-10-PCS; CPT 58563; principal; 2023-06-24 10:30)
PROC: (CPT 11200; 2023-06-24 10:30)
DX: N93.9 Abnormal uterine and vaginal bleeding, unspecified (principal); N93.0 Postcoital and contact bleeding; N84.0 Polyp of corpus uteri; Z79.85 Long-term (current) use of injectable non-insulin antidiabetic drugs; I10 Essential (primary) hypertension; E78.5 Hyperlipidemia, unspecified; F32.A Depression, unspecified; Z87.891 Personal history of nicotine dependence; E66.01 Morbid (severe) obesity due to excess calories; Z68.41 Body mass index [BMI] 40.0-44.9, adult
CPT/HCPCS: 11200; 58558; 88305; A9270; J2250; J2405; J2704; J3010; J7120

== ENCOUNTER 2025-02-13 01:08 | Day surgery (SDC) | payer OTHER, SELFPAY ==
[2025-01-31 14:37] VITALS: BMI 42.9
[2025-02-13 07:18] VITALS: BP 167/94; PULSE 97; RESP 18; TEMP 36.5; O2SAT 98; BMI 43.1
[2025-02-13 07:32] LABS: BEDSIDEPREGUCG Negative (Negative)
[2025-02-13] MEDS: LACTATED RINGERS 1,000 ML 150 ML IV CONT (07:42)
--- NOTE | 2025-02-13 07:46 | PM.HPGS ---
History of Present Illness History of Present Illness Consent: Risks, benefits, and alternatives have been discussed and questions answered. Patient agrees to proceed with procedure. Chief complaint: Encounter for screening for malignant neoplasm of Narrative: Jessica Dean is a 49 year old female here for first screening colonoscopy Review of Systems Review of Systems: All systems reviewed & are unremarkable except as noted in HPI and below PMFSH Past Medical History Medical History delivery delivered Palpitations Hypertension Hyperlipidemia Headache, migraine Depression Surgical History Surgical History H/O dilation and curettage Family History Family History Father Cerebrovascular accident Hypertension Family history of Parkinson's disease Mother Hypertension Family history of diabetes mellitus in first degree relative Sibling Hypertension Social History Social History Years smoked: 23 Smoking status: Former smoker Tobacco type: cigarettes Smoking end date: 07/04/19 Alcohol intake: never Substance use: never Substance use type: does not use Living arrangements: with family Spiritual care concerns: No Meds Home Medications and Allergies Home Medications ?Medication ?Instructions ?Recorded ?Confirmed ?Type amlodipine 10 mg tablet See Rx Instructions .Route 06/12/24 02/13/25 Rx .COMPLEX #90 tabs losartan 100 1 tablet PO DAILY #90 tabs 06/12/24 02/13/25 Rx mg-hydrochlorothiazide 25 mg tablet pravastatin 20 mg tablet See Rx Instructions .Route 06/12/24 02/13/25 Rx .COMPLEX #90 tabs bupropion HCl 300 mg 24 hr tablet, See Rx Instructions .Route 01/22/25 02/13/25 Rx extended release .COMPLEX #90 tabs fluoxetine 40 mg capsule 40 mg PO QAM #90 caps 01/22/25 02/13/25 Rx Allergies Allergy/AdvReac Type Severity Reaction Status Date / Time latex Allergy Intermediate ITCHING Verified 02/13/25 07:24 lisinopril Allergy Unknown cough Verified 02/13/25 07:24 morphine Allergy Unknown Skin Verified 02/13/25 07:24 Reaction naltrexone Allergy Unknown Depression Verified 02/13/25 07:24 Vital Signs Vital Signs - 24 hr 02/13/25 07:18 Temperature 97.7 F Pulse Rate 97 Respiratory Rate 18 Blood Pressure 167/94 H Pulse Oximetry 98 Exam Const: General: comfortable and no acute distress HENMT: Face/Nose/Sinus: Normal nares present Resp: Auscultation: clear to auscultation bilaterally Cardio: Rate: regular rate Rhythm: regular rhythm GI: Inspection: non-distended GI Palp: Yes Soft to palpation Skin: General skin exam: normal color Extrem: General: normal to inspection Psych: Mental Status: mental status grossly normal Assessment and Plan Assessment and plan (1) Screening for colon cancer: Code(s): Z12.11 - Encounter for screening for malignant neoplasm of colon Status: Acute Assessment and Plan: colonoscopy
--- NOTE | 2025-02-13 07:49 | WPDANESEPPF ---
Anes - Initial Pre Proc Eval Procedure: Operation Date: 02/13/25 08:30 Proposed Procedures p Screening Colonoscopy - Sean Toscano MD Date/Time: 02/13/25 07:49 Surgeon: Sean Toscano MD Pre Op Diagnosis: Encounter for screening for malignant neoplasm of Patient Data Age: 49 Gender: F Height: 1.63 m Weight: 114 kg Last Vital Signs Temp 36.5 C 02/13/25 07:18 Pulse 97 02/13/25 07:18 Resp 18 02/13/25 07:18 BP 167/94 H 02/13/25 07:18 Pulse Ox 98 02/13/25 07:18 Allergies Allergy/AdvReac Type Severity Reaction Status Date / Time latex Allergy Intermediate ITCHING Verified 02/13/25 07:24 lisinopril Allergy Unknown cough Verified 02/13/25 07:24 morphine Allergy Unknown Skin Verified 02/13/25 07:24 Reaction naltrexone Allergy Unknown Depression Verified 02/13/25 07:24 Home Medications ?Medication ?Instructions ?Recorded ?Confirmed ?Type amlodipine 10 mg tablet See Rx Instructions .Route 06/12/24 02/13/25 Rx .COMPLEX #90 tabs losartan 100 1 tablet PO DAILY #90 tabs 06/12/24 02/13/25 Rx mg-hydrochlorothiazide 25 mg tablet pravastatin 20 mg tablet See Rx Instructions .Route 06/12/24 02/13/25 Rx .COMPLEX #90 tabs bupropion HCl 300 mg 24 hr tablet, See Rx Instructions .Route 01/22/25 02/13/25 Rx extended release .COMPLEX #90 tabs fluoxetine 40 mg capsule 40 mg PO QAM #90 caps 01/22/25 02/13/25 Rx Laboratory Tests 02/13/25 07:18 POC Urine HCG, Qual Negative (Negative) Patient hx anesthesia problems: none Family hx anesthesia problems: none Results Review: All pre-operative results and documents have been reviewed as part of the pre-operative evaluation. [facility] Past Medical History Medical History delivery delivered Palpitations Hypertension Hyperlipidemia Headache, migraine Depression Surgical History Surgical History H/O dilation and curettage Family History Family History Father Cerebrovascular accident Hypertension Family history of Parkinson's disease Mother Hypertension Family history of diabetes mellitus in first degree relative Sibling Hypertension Social History Social History Years smoked: 23 Smoking status: Former smoker Tobacco type: cigarettes Smoking end date: 07/04/19 Alcohol intake: never Substance use: never Substance use type: does not use Living arrangements: with family Spiritual care concerns: No Anes - Eval Final PreProcedure Day of Procedure 02/13/25 07:49 Patient weight: morbidly obese Heart: regular rate and rhythm Lungs: clear to auscultation Airway: Mallampati scale class II Neurological: alert and oriented Last oral intake: >/= 8 hours ASA classification: III Emergent: no Anesthetic plan: proceed Anesthesia type and monitoring: general GIVS and standard monitoring Results Review: All pre-operative results and documents have been reviewed as part of the pre-operative evaluation. Informed Consent: The patient's anesthetic plan and its attendant risks and benefits were discussed with the patient/family/POA. Questions were solicited and answers provided to the satisfaction of the patient/family/POA.
[2025-02-13 08:08] VITALS: BP 133/81; PULSE 89; RESP 18; O2SAT 95
[2025-02-13 08:18] VITALS: BP 127/80; PULSE 85; RESP 14; O2SAT 99
[2025-02-13 08:28] VITALS: BP 134/84; PULSE 82; RESP 20; O2SAT 99
== END 2025-02-13 08:38 | disposition home or self-care (01) ==
PROVIDERS: Anesthesiology; PCP Family Medicine; Referring Provider Student in an Organized Health Care Education/Training Program; Visit Provider Internal Medicine Gastroenterology
PROC: 0DJD8ZZ Inspection of Lower Intestinal Tract, Via Natural or Artificial Opening Endoscopic (ICD-10-PCS; CPT 45378; principal; 2025-02-13 08:30)
DX: Z12.11 Encounter for screening for malignant neoplasm of colon (principal); K57.30 Diverticulosis of large intestine without perforation or abscess without bleeding; K64.8 Other hemorrhoids; Z87.891 Personal history of nicotine dependence; E66.01 Morbid (severe) obesity due to excess calories; Z68.41 Body mass index [BMI] 40.0-44.9, adult
CPT/HCPCS: 45378; J2003; J2704; J7120